=== PATIENT | female | born 1960 | race Caucasian/White ===

== ENCOUNTER 2016-07-15 22:35 | Inpatient (IN) | payer OTHER ==
--- NOTE | ~2016-07-15 | HP ---
History And Physical [place] [id number] [facility] [place]. [address] NAME: THOR TAI : 56 STATUS : ADM Isa PAT#: [id number] AGE: 56 ADM/REG DATE : 07/15/16 MR#: [id number] REPORT SERV DATE: 07/16/16 DICTATED BY: GEORGES COLMENARES DATE: 07/16/16 REPORT STATUS : Draft TRANSCRIBED BY: MODJade DATE: 07/16/16 DATE OF ADMISSION: 07/15/2016 CHIEF COMPLAINT: A 56-year-old female, presenting with severe vertigo and double vision. HISTORY OF PRESENT ILLNESS: The patient states that just at 6:30 p.m. on the night of admission she developed new onset vertigo. She was at a yoga class doing some kind of exercise on a block when she had sudden onset of the room spinning, severe nausea, which culminated in vomiting. She tried to get up but felt lightheaded and worsening of her symptoms, and she developed double vision as well. She describes feeling "weak all over" but no hemiparesis. No dysarthria. No dysphagia. No blurring of vision. No paresthesias. No confusion. No headache. She has no chest pain. No abdominal pain. No diarrhea. No change in urine habit. REVIEW OF SYSTEMS: Otherwise, 14-point review of systems was obtained and was negative. PAST MEDICAL HISTORY: 1. Stroke, seen on CT scan in the right basal ganglia. 2. Cardiac murmur. 3. Elevated cholesterol. 4. Hypertension. 5. No cardiac disease. No lung disease. PAST SURGICAL HISTORY: Exploratory laparoscopy. ALLERGIES: NO KNOWN DRUG ALLERGIES. SOCIAL HISTORY: The patient is a smoker. Does not drink alcohol. She is . in good health. The patient lives in [place], [place]. Has no children. 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 FAMILY HISTORY: Father with heart disease. CURRENT MEDICATIONS: Include benazepril/hydrochlorothiazide 20/25 half a tablet p.o. b.i.d., Lopressor 25 mg p.o. b.i.d., and Zocor 20 mg p.o. daily. PHYSICAL EXAMINATION: VITAL SIGNS: Temperature 97.9, pulse 74, blood pressure 138/58, respiratory rate 16, and O2 saturation 94% on room air. History And Physical [address] [address] NAME: THOR TAI : 56 STATUS : ADM Isa PAT#: [id number] AGE: 56 ADM/REG DATE : 07/15/16 MR#: [id number] REPORT SERV DATE: 07/16/16 DICTATED BY: GEORGES COLMENARES DATE: 07/16/16 REPORT STATUS : Draft TRANSCRIBED BY: OSVALDO DATE: 07/16/16 GENERAL: A pleasant, cooperative female, but she describes distress from her symptomatic vertigo. NEUROLOGICAL: Cranial nerves 2-12 are intact and symmetrical. The patient does have horizontal nystagmus. The patient has 5/5 strength in upper and lower extremities that is symmetrical. HEENT: Pupils equal, round, and reactive to light. No conjunctival pallor. No scleral icterus. Nares are patent. Oropharynx is clear of obstruction. Moist mucous membranes. NECK: Trachea midline. No thyromegaly. LYMPH: No cervical lymphadenopathy. No supraclavicular lymphadenopathy. RESPIRATORY: Clear to auscultation at bases. No wheezes, rales, or rhonchi. Normal respiratory effort. CARDIOVASCULAR: Regular rate and rhythm. The patient has a 3/6 harsh murmur through the precordium mostly. No rubs or gallops. No extremity edema is appreciated. ABDOMEN: Soft, nontender, nondistended. Normal bowel sounds auscultated throughout. No hepatosplenomegaly. DERMATOLOGICAL: Warm and dry extremities. No pallor. No cyanosis. PSYCHIATRIC: Normal affect. Good mood. Alert and oriented x3. LABORATORY DATA: White blood cell count 11.3, hemoglobin 16, hematocrit 45, and platelets 128. Sodium 143, potassium 3.5, chloride 109, bicarb 26, BUN 32, creatinine 1.0, and glucose 113. Troponin negative. Liver enzymes within normal limits. STUDIES: 1. EKG by my own evaluation shows sinus rhythm, left atrial abnormality, left ventricular hypertrophy. 2. CT scan of the brain without contrast shows old stroke changes but nothing acute. ASSESSMENT AND PLAN: 1. Vertigo with double vision. Check an MRI of the brain. Check carotids. Check echocardiogram. Check fasting lipid panel. Check telemetry. Place on aspirin. 2. Leukocytosis. Monitor for fevers. 3. Murmur. Check an echocardiogram. KPL/MODL Georges Colmenares M.D. / [id number] CC: Georges Colmenares M.D.
--- NOTE | ~2016-07-15 | CN ---
Consultation Report [facility] [address] [place]. [address] NAME: THOR TAI : 56 STATUS : ADM Isa PAT#: [id number] AGE: 56 ADM/REG DATE : 07/15/16 MR#: [id number] REPORT SERV DATE: 07/17/16 DICTATED BY: SHIRA ROLDAN DATE: 07/17/16 REPORT STATUS : Draft TRANSCRIBED BY: MODL DATE: 07/17/16 NEUROLOGY CONSULTATION DATE OF CONSULTATION: 07/17/2016 REASON FOR CONSULTATION: Vertigo plus diplopia. PCP: Dr. Dionisio Ram. HOSPITALIST: Dr. Balbir Hamilton and Alesha Scanlon APN. HISTORY OF PRESENT ILLNESS: The patient is a 56-year-old female, who was in her third week of yoga classes yesterday when she had an episode of vertigo. She was putting a roll under the small of her back and under her shoulders when the room "began to spin". She also felt herself spin. She closed her eyes to avoid becoming extremely nauseated. EMS was probably called and when they arrived, the patient vomited. She continued to have vertiginous symptoms for approximately 8 hours afterwards and then it resolved. She denied having any type of diplopia. She denied any confusion, any visual changes, any speech changes, or any numbness or weakness in the extremities. This is not the first time she had vertigo (she had episodes when she was a child). PAST MEDICAL HISTORY: Stroke (right basal ganglia); heart murmur; hypertension; and hyperlipidemia. PAST SURGICAL HISTORY: Exploratory laparoscopic surgery. HOME MEDICATION LIST: Include Lotensin HCT 20/25 mg b.i.d.; Lopressor 25 mg b.i.d.; and Zocor 20 mg bedtime. ALLERGIES: NONE. SOCIAL HISTORY: The patient is . She is self employed. She has no children. She is a smoker, smoking 1 pack per day. Denies use of alcohol or illicit drugs. FAMILY HISTORY: The patient's mother is alive. She has breast cancer. Father is alive, has heart disease, had several MIs. She has 1 sister who has had an ME and four other siblings who are healthy. REVIEW OF SYSTEMS: Please refer to HPI for pertinent positives. PHYSICAL EXAMINATION: GENERAL: The patient is a 56-year-old female, who stands 5 feet 5 inches tall and weighs 69.39 kilos. Consultation Report [place] [id number] [facility] [place]. [address] NAME: THOR TAI : 56 STATUS : ADM Isa PAT#: [id number] AGE: 56 ADM/REG DATE : 07/15/16 MR#: [id number] REPORT SERV DATE: 07/17/16 DICTATED BY: SHIRA ROLDAN DATE: 07/17/16 REPORT STATUS : Draft TRANSCRIBED BY: OSVALDO DATE: 07/17/16 VITAL SIGNS: She is afebrile. Heart rate is 50, respiratory rate 30, O2 saturations on room air 91%, and blood pressure 146/70. NEUROLOGIC: She is alert and oriented x4. Communicates appropriately. Speech is clear. Language fluent. Pupils are 3 mm. PERRLA. Cranial nerves 2 through 12 are intact. There is no nystagmus with lateral gaze or vertical gaze. She can move all extremities x4. Finger to-nose no ataxia. No pronator drift. No dysmetria, tremor, asterixis, or dysdiadochokinesis. Upper extremity strength is 5/5. Upper DTRs 2+ bilaterally. No sensory deficits. Lower extremity strength is 5/5. No sensory deficits. DTRs are 2+ bilaterally. Gait is non-ataxic. NECK: No carotid bruits, JVD, or thyromegaly. CHEST: Lung sounds clear. CARDIAC: Regular rate and rhythm. No murmur, click, gallop, or rub. LABORATORY DATA: CBC is normal. BMP normal. CT of the brain without contrast, moderate deep white matter chronic microvascular changes. Chronic stroke in the superior right basal ganglia extending into the radiata. MRI of the brain with and without contrast: Extensive old deep white matter changes, questionable CADASIL disease. Chest x-ray, mild elevation of the right hemidiaphragm with bibasilar atelectasis. Echocardiogram is pending. Urinalysis is positive for UTI. MRA of the head and neck with and without contrast, left carotid is occluded. ASSESSMENT/PLAN: 1. BPPV (benign paroxysmal positional vertigo). At this point, the patient will be placed on meclizine 25 mg p.r.n. vertiginous symptoms. She will be scheduled with an ENT on an outpatient visit. 2. 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 The patient will undergo a CTA of the head and neck with gadolinium to get an exact percentage. In the meantime, she will be placed on aspirin 325 mg daily. Her Zocor will be increased to 40 mg at bedtime. According to the results of the CTA, she may need to be placed on Plavix 75 mg daily, and may need vascular consultation for surgical intervention. 3. History of stroke. The patient was educated on risk factor reduction, specifically smoking cessation. 4. Urinary tract infection. This will be managed per hospitalist team. 5. Thank you again for including us in consultation. We will continue to follow with you. SOMMER/OSVALDO Shira Roldan DNP, ACNP-BC / [id number] CC: Consultation Report [address] [address] NAME: THOR TAI : 56 STATUS : ADM Isa PAT#: [id number] AGE: 56 ADM/REG DATE : 07/15/16 MR#: [id number] REPORT SERV DATE: 07/17/16 DICTATED BY: SHIRA ROLDAN DATE: 07/17/16 REPORT STATUS : Draft TRANSCRIBED BY: OSVALDO DATE: 07/17/16 Frank Amador NP
--- NOTE | ~2016-07-15 | DS ---
Discharge Summary [place] [id number] [place]. [address] NAME: THOR TAI : 56 STATUS : DIS IN PAT#: [id number] AGE: 56 ADM/REG DATE : 07/15/16 MR#: [id number] REPORT SERV DATE: 07/19/16 DICTATED BY: DATE: REPORT STATUS : Draft TRANSCRIBED BY: MODL DATE: 07/18/16 ADMISSION DATE: 07/15/2016 DISCHARGE DATE: 07/18/2016 DISCHARGE DIAGNOSES: 1. Vertigo determined to be benign positional vertigo. 2. Diplopia. 3. Hypertension. 4. Cardiac murmur. 5. Leukocytosis. 6. Tobacco abuse disorder. 7. Thyroid nodules. PROCEDURES AND IMAGIN. 07/15/2016, CT of the brain without contrast showed moderate deep white matter chronic microvascular ischemic changes. Chronic appearing cerebrovascular accident, superior right basal ganglia extending into the rocha radiata. 2. 07/16/2016, portable chest x-ray showed mild elevation of right hemidiaphragm with bibasilar atelectasis. 3. 07/16/2016, MRI of the brain without contrast showed evidence for extensive deep old white matter disease, question CADASIL disease. 4. 07/16/2016, MRA of the neck showed atherosclerotic changes with no significant carotid stenosis. Left carotid appears occluded, reconstitute superiorly terminating as a posterior inferior communicating artery, non-dominant vertebral artery. 5. 07/17/2016, CTA of the neck showed unremarkable intracranial CTA. Moderate deep white matter chronic microvascular ischemic changes. Small old infarct in the superior right basal ganglia extending into the rocha radiata. 6. CTA of the carotids showed unremarkable CTA of the carotid arteries, no significant atherosclerotic plaque or stenosis. Normal contour to the bilateral vertebral arteries. Dominant right vertebral artery. There is an enlarged multinodular thyroid gland. CONSULTATIONS: Mason Isaac MD and Shira Blanchard DNP, ACNP-BC with Neurology. HOSPITAL COURSE: Please refer to Dr. Colmenares's H and P, dated on 07/15/2016, for complete details regarding the patient's admission. In brief, the patient was admitted by Dr. Colmenares for initial workup and management of her severe vertigo and double vision. This has had exhibited itself during a yoga class in which she had a sudden onset of room spinning, severe nausea and vomiting. The patient also developed double vision as well. During her stay, the patient has had an uneventful hospital course. Neurology was consulted, please see consultation note on 07/17/2016, by Shira Blanchard DNP. At that time, it was determined that the patient had benign paroxysmal positional vertigo. Questionable occluded left carotid artery was shown according to the MRA. This was clarified through CTA of the head and neck with gadolinium and the patient's carotids were found to be without blockage. The patient did exhibit severe nausea and room spinning, but no diplopia for the first 13 hours of her stay, which resolved on its own without meclizine. The patient has had no Discharge Summary [address] [place]. [address] NAME: THOR TAI : 56 STATUS : DIS IN [facility]#: [id number] AGE: 56 ADM/REG DATE : 07/15/16 MR#: [id number] REPORT SERV DATE: 07/19/16 DICTATED BY: DATE: REPORT STATUS : Draft TRANSCRIBED BY: MODL DATE: 07/18/16 other symptoms. The patient has a history of hypertension, which has been well controlled with her home medications of benazepril and hydrochlorothiazide as well as metoprolol. The patient does have a cardiac murmur and an echocardiogram was obtained, which showed mild left ventricular hypertrophy, left diastolic dysfunction with left atrial dilatation. The patient is a pack-a-day smoker and extensive discussion was given to the patient x15 minutes regarding need for cessation due to old infarct and other healthcare issues. The patient is agreeable to attempt cessation. PHYSICAL EXAMINATION: VITAL SIGNS: Blood pressure is 128/56, O2 sat is 91% on room air, respirations are 19, heart rate is 59, temperature is 97.9. HEENT: Head is atraumatic, normocephalic. Pupils are equal, round, reactive to light and accommodation. Sclerae are clear and nonicteric. No xanthelasma. Good dentition. NECK: Supple with no obvious lymphadenopathy. Neck veins are flat. CARDIAC: The patient does have a murmur at left sternal border and left midclavicular line. ABDOMEN: Abdomen is soft and nontender with active bowel sounds in all four quadrants. Normal bowel habitus. No palpable organomegaly. LUNGS: Lungs are clear to auscultation with normal respiratory effort. EXTREMITIES: No significant edema, clubbing, or cyanosis. Dorsalis pedis and posterior tibial pulses are palpable bilaterally. MUSCULOSKELETAL: Moves all extremities x4. She is ambulatory without assistance. No difficulties with balance. SKIN: Skin is warm and dry. Normal color and turgor. NEURO/PSYCH: The patient is alert and oriented x4, pleasant and cooperative. Cranial nerves 2 through 12 are grossly intact. Affect is bright. No apparent anxiety or depression. DISCHARGE MEDICATIONS: Aspirin 325 mg daily, Lotensin hydrochlorothiazide 20/25, 0.5 tablets p.o. twice daily, metoprolol 25 mg twice daily, simvastatin 40 mg daily. ALLERGIES: THE PATIENT HAS NO KNOWN DRUG ALLERGIES. DISCHARGE INSTRUCTIONS: The patient is to follow up with her PCP, Dr. Dionisio Ram of [facility] in 7 to 10 days. Should the patient develop any more vertigo or double vision, she should follow up with her PCP or present to the ER. The patient is to be scheduled for outpatient ultrasound of her thyroid to follow up on the multinodular thyroid that was found per CT scan. The patient also has a followup appointment with Dr. Jean for ENT regarding her benign positional vertigo. Approximately 40 minutes has been spent coordinating discharge care of this patient as well as [id number] encounter and summarization of the discharge. Fifteen minutes has been spent in discussion of smoking cessation and changing of habits. [facility] [place]/MODL Alesha Mayer Discharge Summary [address] [address] NAME: THOR TAI : 56 STATUS : DIS IN PAT#: [id number] AGE: 56 ADM/REG DATE : 07/15/16 MR#: [id number] REPORT SERV DATE: 07/19/16 DICTATED BY: DATE: REPORT STATUS : Draft TRANSCRIBED BY: MODL DATE: 07/18/16 LILA Scanlon / [id number] CC: Frank Amador D.O.
[2016-07-15 22:00] LABS: BASOPHILS 0.2 %; BASOPHILS ABSOLUTE 0.02 10/3/uL (0.0-0.16); EOSINOPHILS 0.4 %; EOSINOPHILS ABSOLUTE 0.04 10/3/uL (0.0-0.53); HEMATOCRIT 45.4 % (36.0-48.0); HEMOGLOBIN 16.1 g/dL (12.0-16.0); IMMATURE GRANULOCYTES 0.6 %; IMMATURE GRANULOCYTES ABSOLUTE 0.07 10/3/uL (0.0-0.11); LYMPHOCYTES ABSOLUTE 1.58 10/3/uL (0.67-4.30); MEAN CORPUS HGB CONC 35.5 g/dL (32.0-36.0); MEAN CORPUSCULAR HEMOGLOB 31.4 pg (26.0-34.0); MEAN CORPUSCULAR VOLUME 88.7 fL (80-100); MEAN PLATELET VOLUME 10.5 fL (9.2-13.0); MONOCYTES 6.2 %; NEUTROPHILS 78.6 %; NEUTROPHILS ABSOLUTE 8.86 10/3/uL (2.02-8.40); PLATELET COUNT 128 10/3/uL (150-400); RBC DISTRIBUTION WIDTH 13.3 % (12.0-16.0); RED CELL COUNT 5.12 10/6/uL (4.0-5.6); WHITE BLOOD CELLS 11.3 10/3/uL (4.5-10.5)
[2016-07-15 22:02] LABS: MANUAL DIFF NO %
[2016-07-15 22:17] LABS: A/G RATIO 1.1 (0.7-1.9); ALBUMIN 3.5 G/DL (3.5-5.0); ALKALINE PHOSPHATASE 77 U/L (45-117); BUN (BLOOD UREA NITROGEN) 32 MG/DL (6-23); CALCIUM, SERUM 8.7 MG/DL (8.5-10.4); CHLORIDE, SERUM 109 MMOL/L (96-112); CO2 (CARBON DIOXIDE) 26 MMOL/L (24-34); CREATININE 1.02 MG/DL (0.55-1.02); GFR AFRICAN AMERICAN 70 ML/MIN (>=60); GFR NON AFRICAN AMERICAN 61 ML/MIN (>=60); GLOBULIN 3.1 G/DL (2.5-4.1); GLUCOSE, SERUM 113 MG/DL (60-99); POTASSIUM, SERUM 3.5 MMOL/L (3.5-5.3); SGPT(ALT) 12 U/L (5-65); SODIUM, SERUM 143 MMOL/L (135-148); TOTAL BILIRUBIN 0.3 MG/DL (0-1.2); TOTAL PROTEIN 6.6 G/DL (6.0-8.5); TROPONIN I <0.02 NG/ML (<0.05)
[2016-07-15 22:18] LABS: SGOT(AST) 19 U/L (5-40)
[2016-07-15] MEDS ORDERED: LOTENSIN HCT1 TA3 PO (23:39)
[2016-07-15] MEDS ORDERED: LOP25 PO (23:39)
[2016-07-15] MEDS ORDERED: ZOCOR40 PO (23:40)
[2016-07-16 03:41] LABS: BASOPHILS 0.1 %; BASOPHILS ABSOLUTE 0.01 10/3/uL (0.0-0.16); EOSINOPHILS 0.2 %; EOSINOPHILS ABSOLUTE 0.02 10/3/uL (0.0-0.53); HEMATOCRIT 42.7 % (36.0-48.0); HEMOGLOBIN 14.6 g/dL (12.0-16.0); IMMATURE GRANULOCYTES 0.4 %; IMMATURE GRANULOCYTES ABSOLUTE 0.04 10/3/uL (0.0-0.11); LYMPHOCYTES ABSOLUTE 1.38 10/3/uL (0.67-4.30); MEAN CORPUS HGB CONC 34.2 g/dL (32.0-36.0); MEAN CORPUSCULAR HEMOGLOB 30.4 pg (26.0-34.0); MEAN PLATELET VOLUME 9.8 fL (9.2-13.0); MONOCYTES 6.1 %; NEUTROPHILS 79.2 %; NEUTROPHILS ABSOLUTE 7.78 10/3/uL (2.02-8.40); PLATELET COUNT 129 10/3/uL (150-400); RBC DISTRIBUTION WIDTH 12.9 % (12.0-16.0); WHITE BLOOD CELLS 9.8 10/3/uL (4.5-10.5)
[2016-07-16 03:42] LABS: MANUAL DIFF NO %
[2016-07-16 03:48] LABS: INTERNATIONAL NORMAL RATI 1.1 UNITS (-); PARTIAL THROMBO TIME 33.4 SEC (22.5-37.2); PROTIME (NOT ORD) 14.5 SEC (12.0-14.5)
[2016-07-16 04:12] LABS: A/G RATIO 1.2 (0.7-1.9); ALKALINE PHOSPHATASE 66 U/L (45-117); CHLORIDE, SERUM 113 MMOL/L (96-112); CHOLESTEROL 144 MG/DL (< 200); CO2 (CARBON DIOXIDE) 24 MMOL/L (24-34); CREATININE 0.83 MG/DL (0.55-1.02); GFR AFRICAN AMERICAN 90 ML/MIN (>=60); GFR NON AFRICAN AMERICAN 78 ML/MIN (>=60); GLOBULIN 2.5 G/DL (2.5-4.1); GLUCOSE, SERUM 106 MG/DL (60-99); HDL CHOLESTEROL 36 MG/DL (> 49); LDL CHOLESTEROL 90 MG/DL (< 130); NON-HDL CHOLESTEROL 108 MG/DL (< 160); POTASSIUM, SERUM 4.1 MMOL/L (3.5-5.3); SGOT(AST) 14 U/L (5-40); SGPT(ALT) 7 U/L (5-65); SODIUM, SERUM 145 MMOL/L (135-148); TOTAL BILIRUBIN 0.4 MG/DL (0-1.2); TOTAL PROTEIN 5.5 G/DL (6.0-8.5); TRIGLYCERIDE 92 MG/DL (< 150); TROPONIN I 0.02 NG/ML (<0.05); ULTRASENSITIVE TSH 0.704 MCIU/ML (0.358-3.740)
[2016-07-16 04:16] LABS: BUN (BLOOD UREA NITROGEN) 23 MG/DL (6-23)
[2016-07-16 04:30] LABS: PROCALCITONIN <0.05 ng/mL (<0.5)
[2016-07-16 04:33] LABS: SED RATE 5 MM/HR (0-20)
[2016-07-16 04:59] LABS: ASCORBIC ACID (UR NOT ORDER) NEG (NEG); BILIRUBIN, URINE NEGATIVE (NEG); KETONE, URINE NEGATIVE (NEG); LEUKOCYTE ESTERASE(NOT OR LARGE (NEG)
[2016-07-16 05:00] LABS: WBC (NOT ORDERED) (RFLEX) > 182 (0-5)
[2016-07-17 04:52] LABS: BASOPHILS 0.2 %; BASOPHILS ABSOLUTE 0.02 10/3/uL (0.0-0.16); EOSINOPHILS 0.5 %; EOSINOPHILS ABSOLUTE 0.04 10/3/uL (0.0-0.53); HEMATOCRIT 44.3 % (36.0-48.0); HEMOGLOBIN 14.9 g/dL (12.0-16.0); IMMATURE GRANULOCYTES 0.5 %; IMMATURE GRANULOCYTES ABSOLUTE 0.04 10/3/uL (0.0-0.11); LYMPHOCYTES 18.5 %; LYMPHOCYTES ABSOLUTE 1.52 10/3/uL (0.67-4.30); MEAN CORPUS HGB CONC 33.6 g/dL (32.0-36.0); MEAN CORPUSCULAR HEMOGLOB 30.2 pg (26.0-34.0); MEAN CORPUSCULAR VOLUME 89.7 fL (80-100); MEAN PLATELET VOLUME 10.1 fL (9.2-13.0); MONOCYTES 7.4 %; MONOCYTES ABSOLUTE 0.61 10/3/uL (0.21-1.20); NEUTROPHILS 72.9 %; NEUTROPHILS ABSOLUTE 5.98 10/3/uL (2.02-8.40); PLATELET COUNT 119 10/3/uL (150-400); RBC DISTRIBUTION WIDTH 13.2 % (12.0-16.0); RED CELL COUNT 4.94 10/6/uL (4.0-5.6); WHITE BLOOD CELLS 8.2 10/3/uL (4.5-10.5)
[2016-07-17 04:54] LABS: MANUAL DIFF NO %
[2016-07-17 05:04] LABS: BUN (BLOOD UREA NITROGEN) 12 MG/DL (6-23); CALCIUM, SERUM 8.6 MG/DL (8.5-10.4); CHLORIDE, SERUM 109 MMOL/L (96-112); CO2 (CARBON DIOXIDE) 30 MMOL/L (24-34); CREATININE 0.88 MG/DL (0.55-1.02); GFR AFRICAN AMERICAN 84 ML/MIN (>=60); GFR NON AFRICAN AMERICAN 72 ML/MIN (>=60); GLUCOSE, SERUM 98 MG/DL (60-99); POTASSIUM, SERUM 3.8 MMOL/L (3.5-5.3); SODIUM, SERUM 142 MMOL/L (135-148)
[2016-07-18] MEDS ORDERED: ASA5GR PO (07:59)
[2016-07-18] MEDS ORDERED: MCZ25 PO (08:27)
== END 2016-07-18 09:50 | disposition home or self-care (01) | DRG 149 ==
LOC: ER 22:35 → CDU1 23:53 → CDU2 07-16 00:49
PROVIDERS: Emergency Medicine; Hospitalist; Nurse Practitioner Family
DX: H81.10 Benign paroxysmal vertigo, unspecified ear (principal); I65.22 Occlusion and stenosis of left carotid artery; I10 Essential (primary) hypertension; N39.0 Urinary tract infection, site not specified; H53.2 Diplopia; R01.1 Cardiac murmur, unspecified; D72.829 Elevated white blood cell count, unspecified; F17.210 Nicotine dependence, cigarettes, uncomplicated; E04.1 Nontoxic single thyroid nodule
CPT/HCPCS: 70450; 70496; 70498; 70548; 70553; 71010; 80048; 80053; 80061; 81001; 83735; 83880; 84145; 84443; 84484; 85025; 85610; 85652; 85730; 86140; 87086; 93005; 93306; 96374; 96375; 99285; A9270-GY; A9577; J2405; Q9967